=== PATIENT | female | born 1955 | race Caucasian/White ===

== ENCOUNTER 2021-11-10 06:41 | Observation (INO) ==
--- NOTE | 2021-10-09 11:14 | PAT Medication Instructions ---
Medication Instructions Date of Service October 09, 2021 Home Medications atorvastatin 20 mg tablet 20 mg PO HS ropinirole 3 mg tablet 3 mg PO HS ropinirole 3 mg tablet 3 mg PO UD PRN venlafaxine 150 mg capsule,extended release 24 hr (Effexor XR) 150 mg PO QAM venlafaxine 75 mg capsule,extended release 24 hr (Effexor XR) 75 mg PO QAM ibuprofen 600 mg tablet 600 mg PO UD PRN omega-3 fatty acids 1,000 mg PO QAM ASK your surgeon for instructions ibuprofen 600 mg tablet 600 mg PO UD PRN STOP taking 2 weeks before surgery omega-3 fatty acids 1,000 mg PO QAM DO NOT take the morning of surgery ropinirole 3 mg tablet 3 mg PO UD PRN Take morning of surgery With a small sip of water, OTHERWISE NOTHING TO EAT OR DRINK AFTER MIDNIGHT: venlafaxine 150 mg capsule,extended release 24 hr (Effexor XR) 150 mg PO QAM venlafaxine 75 mg capsule,extended release 24 hr (Effexor XR) 75 mg PO QAM Take evening before surgery atorvastatin 20 mg tablet 20 mg PO HS ropinirole 3 mg tablet 3 mg PO HS Other Notes If you have any questions please call us at [phone] or [phone] or [phone] or [phone]
--- NOTE | 2021-10-10 12:07 | Anesthesiology Consultation ---
Date of Service October 10, 2021 Assessment & Plan (1) Encounter for pre-operative examination: - Discussed staged vs bilat TKA. Pt plans to proceed with bilat TKA. - COVID screening: Per assessment on 10/10/2021: Travel screen negative, no known COVID-19 positive contacts or current COVID-19 related symptoms in past 2 weeks. Patient vaccinated. Surgeon arranging preop COVID testing, scheduled 11/08/2021. Awaiting results. Chart Review Chart Review: Acceptable Risk for Surgery and Patient seen in Pre Admission Testing Teaching & Discussion Pre-Anesthesia Teaching/Discussion Notes: Instructed NPO after midnight before surgery, except medications with 15 cc of water. Medication instructions provided according to the PAT guidelines. History Surgery Operation Date: 11/10/21 07:15 Proposed Procedures p Bilateral Total Knee Arthroplasty - Khadar Watkins DO Height/Weight Height: 5 ft 2 in Weight: 80.8 kg Allergies Allergy/AdvReac Type Severity Reaction Status Date / Time atorvastatin AdvReac Unknown LEG CRAMPS Verified 10/09/21 08:52 Medications Home Medications Medication Instructions Recorded Confirmed Last Taken atorvastatin 20 mg tablet 20 mg PO HS 01/17/21 10/09/21 Unknown ropinirole 3 mg tablet 3 mg PO HS 01/17/21 10/09/21 Unknown ropinirole 3 mg tablet 3 mg PO UD PRN 01/17/21 10/09/21 Unknown venlafaxine 150 mg 150 mg PO QAM 01/17/21 10/09/21 Unknown capsule,extended release 24 hr (Effexor XR) venlafaxine 75 mg capsule,extended 75 mg PO QAM 01/17/21 10/09/21 Unknown release 24 hr (Effexor XR) ibuprofen 600 mg tablet 600 mg PO UD PRN 10/09/21 10/09/21 Unknown omega-3 fatty acids 1,000 mg PO QAM 10/09/21 10/09/21 Unknown Past Medical History Medical History (Updated 10/10/21 @ 15:15 by Lyubov Oswald PA-C) Depression Glaucoma "mild" History of basal cell cancer s/p surgery History of blood transfusion 1990s states had donated own blood prior to a surgery d/t concern with AIDS and then received transfusion back per pt History of DVT (deep vein thrombosis) s/p childbirth age 18 - no additional events Hyperlipidemia borderline Osteoarthritis Restless leg syndrome Patient denies h/o stroke, seizures, heart attack, heart failure, DM, or HTN. Exercise / Class Metabolic Activity II 4-5 Yardwork/Stairs/Walk up hill (denies CP or SOB with 1 FOS) Past Family History Family History Other No family history of adverse response to anesthesia Past Surgical History Surgical History H/O oral surgery expansion of top palate for realignment/reconstructive procedure History of bunionectomy right History of colonoscopy History of tubal ligation S/P surgery on nasal septum nasal septum button insertion S/P NIGEL (total abdominal hysterectomy) Past Anesthesia History No Hx of Anesthesia Complications and No Family Hx of Anesthesia Complications History of PONV No Hx of PONV and No Hx of Motion Sickness Social History Smoking Status: Never smoker Do You Dip or Chew Tobacco: No Hx Alcohol Use: Yes Alcohol type: wine alcohol intake frequency: holidays/special occasions only Hx Substance Use: No substance use type: does not use Review of Systems Snoring, denies witnessed apneas or sleep studies. Rare reflux. Patient denies chest pain, shortness of breath, dyspnea on exertion, fever, chills, cough, wheezing, or palpitations. Physical Exam Vital Signs Vitals BP 134/87 P 87 TEMP 98.3 SP02 96% on RA RESP 16 Physical Full cervical extension range of motion without pain TMD 3.5 finger breaths Mallampati Score 2 Dentition: intact, multiple crowns-none in front; denies chipped, loose or missing teeth, implants or bridges Lungs: normal respiratory effort. Clear throughout to auscultation, no adventitious breath sounds Cardiac: regular rate and rhythm, no murmurs noted Carotid arteries: negative bruit bilat Lab Results Anesthesia Preop Results Results Anesthesia Widget: WBC 4.63 K/uL (4.8-10.8) L 10/10/21 Hgb 11.8 g/dL (12.0-16.0) L 10/10/21 Hct 34.7 % (37-47) L 10/10/21 Plt 301 K/uL (130-400) 10/10/21 Na 134 mmol/L (136-145) L 10/10/21 K 3.9 mmol/L (3.5-5.1) 10/10/21 Cl 104 mmol/L (98-107) 10/10/21 CO2 25 mmol/L (21-32) 10/10/21 BUN 17 mg/dl (6-23) 10/10/21 Creat 0.85 mg/dl (0.6-1.2) 10/10/21 Glucose Level 162 mg/dl (70-99(Fasting)) H 10/10/21 PT 10.3 Seconds (9.0-12.0) 10/10/21 PTT 23.3 Seconds (21.0-31.0) 10/10/21 INR 1.0 (0.9-1.1) 10/10/21 HA1c 5.6 % (4.5-5.6) 10/10/21 Urine Color Yellow 10/10/21 Urine Appearance Clear (Clear) 10/10/21 Urine pH 5.0 (4.5-7.5) 10/10/21 Urine Specific Dorothy 1.006 (1.000-1.030) 10/10/21 Urine Protein Negative (Negative) 10/10/21 Urine Glucose (UA) Negative (Negative) 10/10/21 Urine Ketones Negative (Negative) 10/10/21 Urine Blood Negative (Negative) 10/10/21 Urine Nitrite Negative (Negative) 10/10/21 Urine Bilirubin Negative (Negative) 10/10/21 Urine Urobilinogen Negative (Negative) 10/10/21 Urine Leukocyte Esterase Negative (Negative) 10/10/21 Blood Type A Positive 10/10/21 Antibody Screen NEGATIVE 10/10/21 Testing Electrocardiogram Date: 10/10/21 NSR, rate 80 bpm Chest X-Ray Date: 01/25/21 No acute cardiopulmonary findings
--- NOTE | 2021-11-06 10:06 | History & Physical Report ---
Date of Service November 06, 2021 Assessment & Plan (1) Bilateral primary osteoarthritis of knee: Plan: Schedule a bilateral total knee arthroplasty for 11/10/2021. All potential risks, benefits, complications, alternatives, and rehab have been discussed with the patient and she wishes to proceed. Plan for Eliquis 2.5 mg twice daily x4 weeks for postoperative blood clot prophylaxis. History of Present Illness Chief Complaint: Bilateral knee pain Primary Care Provider: Omar Adamson MD This is a patient with a long history of bilateral knee pain. She had been treated conservatively for osteoarthritis of both knees. However, she has failed all conservative management. She is now being set up for bilateral total knee arthroplasty. Allergies Allergy/AdvReac Type Severity Reaction Status Date / Time atorvastatin AdvReac Unknown LEG CRAMPS Verified 10/09/21 08:52 Home Medications Medication Instructions Recorded Confirmed Type atorvastatin 20 mg tablet 20 mg PO HS 01/17/21 10/09/21 History ropinirole 3 mg tablet 3 mg PO HS 01/17/21 10/09/21 History ropinirole 3 mg tablet 3 mg PO UD PRN 01/17/21 10/09/21 History venlafaxine 150 mg 150 mg PO QAM 01/17/21 10/09/21 History capsule,extended release 24 hr (Effexor XR) venlafaxine 75 mg capsule,extended 75 mg PO QAM 01/17/21 10/09/21 History release 24 hr (Effexor XR) ibuprofen 600 mg tablet 600 mg PO UD PRN 10/09/21 10/09/21 History omega-3 fatty acids 1,000 mg PO QAM 10/09/21 10/09/21 History Past Med/Surg History Medical History Depression Glaucoma "mild" History of basal cell cancer s/p surgery History of blood transfusion 1990s states had donated own blood prior to a surgery d/t concern with AIDS and then received transfusion back per pt History of DVT (deep vein thrombosis) s/p childbirth age 18 - no additional events Hyperlipidemia borderline Osteoarthritis Restless leg syndrome Surgical History H/O oral surgery expansion of top palate for realignment/reconstructive procedure History of bunionectomy right History of colonoscopy History of tubal ligation S/P surgery on nasal septum nasal septum button insertion S/P NIGEL (total abdominal hysterectomy) Family History Other No family history of adverse response to anesthesia Social History Smoking Status: Never smoker Second Hand Exposure: Yes (hx); Hx Alcohol Use: Yes Alcohol type: wine Hx Substance Use: No Preferred Language: Kinyarwanda Communication Ability: Effective Litigation Secretary Required: No Beliefs That Will Affect Care: None Current Living Situation: Alone Feels Safe at Home: Yes Assistive Devices: Glasses Physical Exam Constitutional: well developed and well nourished; no acute distress ENMT: external ear and nose normal, oropharynx normal Neck: trachea midline Respiratory: normal respiratory effort, lungs clear to auscultation Cardiovascular: Rate/Rhythm: regular rate and regular rhythm Gastrointestinal (Abdomen): normal bowel sounds, soft, nontender, no hepatosplenomegaly Musculoskeletal: Knee: + knee ROM with crepitation (Bilateral knees), + joint line tenderness (Bilateral medial and lateral joint lines) and + Asuncion's sign positive (Bilateral); no skin erythema and no ecchymosis Skin: no rashes, warm and dry Trauma: no evidence of skin trauma Neurologic: normal touch/pain/proprioception Psychiatric: A+Ox3, euthymic affect Speech: normal rate/rhythm/volume of speech Lymphatic: no cervical or axillary lymphadenopathy
[~2021-11-10 06:41] MED LIST: ACETAMINOPHEN 500 MG TAB PO SCH; CeleBREX 200 MG CAP PO SCH; DEXAMETHASONE SOD INJ 4 MG/ML VIAL ONE; FAMOTIDINE 20 MG TAB PO SCH; GABAPENTIN 300 MG CAP PO SCH; LIDOCAINE 2% 2 ML VIAL/AMP(20MG/ML) INFIL ONE; LR 15ML/HR IV SCH; LR 500ML BOLUS IV SCH; METOCLOPRAMIDE HCL 10 MG TABLET PO SCH; MIDAZOLAM HCL 1 MG/ML 2ML VIAL ONE; ONDANSETRON INJ 2 MG/ML 2 ML VIAL ONE; PROPOFOL IV EMULSION 10 MG/ML 20 ML VIAL IV ONE; ROPIVACAINE 0.5% HCL/PF 150 MG, BUPIVACAINE 0.75% MPF 20 ML, EPINEPHrine 30MG/30ML (OR ... INFIL SCH; TRANEXAMIC ACID 1,000 MG **IV Intra-op IV SCH; TRANEXAMIC ACID 1,000 MG **IV Pre-op IV SCH; ceFAZolin 2000MG 2,000 MG/15 ML SYR IV SCH; dexAMETHasone 4 MG TAB PO SCH
[2021-11-10] MEDS ORDERED: LIDOCAINE 2% 2 ML VIAL/AMP(20MG/ML) INFIL ONE (06:42)
[2021-11-10] MEDS ORDERED: fentaNYL citrate 100 MCG/2 ML VIAL ONE (06:42)
[2021-11-10] MEDS ORDERED: PROPOFOL IV EMULSION 10 MG/ML 20 ML VIAL IV ONE (06:42)
[2021-11-10] MEDS ORDERED: ROPIVACAINE 0.5% 5 MG/ML 30 ML VIAL ONE (07:30)
--- NOTE | 2021-11-10 07:32 | History & Physical Bridge Note ---
Date of Service November 10, 2021 History & Physical Bridge Note I have examined the patient, reviewed the History & Physical and in the interval since the performance of the History & Physical I have noted the following changes of clinical significance: no changes noted
[2021-11-10] MEDS ORDERED: HYDROmorphone INJ 2 MG/ML SYR/VIAL ONE (07:33)
[2021-11-10] MEDS ORDERED: ceFAZolin 330 MG/ML 1 GM VIAL ONE (08:12)
[2021-11-10] MEDS ORDERED: ORTHO JOINT ANESTHETIC ONE (08:12)
[2021-11-10] MEDS ORDERED: ePHEDrine sulfate 50 MG/ML AMP IV PRN (08:21)
[2021-11-10] MEDS ORDERED: fentaNYL citrate 100 MCG/2 ML VIAL IV PRN (08:21)
[2021-11-10] MEDS ORDERED: ATROPINE SULFATE 0.1 MG/ML 10ML SYR IV PRN (08:21)
[2021-11-10] MEDS ORDERED: ONDANSETRON INJ 2 MG/ML 2 ML VIAL IV PRN ×2 (08:21→15:51)
[2021-11-10] MEDS ORDERED: ARTIFICIAL TEARS OP OINT 3.5 GM TUBE ONE (09:12)
[2021-11-10] MEDS ORDERED: KETAMINE 50 MG/5 ML SYRINGE ONE (09:53)
[2021-11-10] MEDS ORDERED: GLYCOPYRROLATE 0.2 MG/ML VIAL ONE (09:54)
[2021-11-10] MEDS ORDERED: METOPROLOL TARTRATE 1 MG/ML VIAL IV ONE (10:40)
[2021-11-10] MEDS ORDERED: BUPIVACAINE 0.5 % 5 MG/1 ML MPF 30ML VIAL ONE (12:08)
--- NOTE | 2021-11-10 12:27 | Post Operative Brief Note ---
Immediate Post Op Note v1 Date of Surgery November 10, 2021 Pre & Post Diagnosis Operation Date: 11/10/21 08:45 Pre-Op Diagnosis: Bilateral Knee Osteoarthritis, varus left knee, varus right knee Post-Op Diagnosis: Bilateral Knee Osteoarthritis, varus left knee, varus right knee, bilateral knee synovitis I identified the patient and participated in the time-out.: Yes Procedure Operation Date: 11/10/21 08:45 Actual Procedures p Bilateral Total Knee Arthroplasties; [facility] MRI matched cemented; left side 5 femur, 4 tibia, 9 mm poly-, 32 mm patella; right side 6 femur, 4 tibia, 10 mm poly-, 32 mm patellaKhadar Watkins DO Surgeon Khadar Watkins DO Person Investigator Leobardo Reddy PA-C Estimated Blood Loss 30 (Right - 15ml Left - 15ml) Findings Consistent with Post-Op Diagnosis Specimens Bone and tissue bilateral knees Drains Hemovac Drain (bilateral) Anesthesia Type MAC Spinal Regional Complications none Disposition Accompanied Patient To Recovery: No Overlapping Procedure I was present for: the critical portions of procedure. I was immediately available: during the entire case.
--- NOTE | 2021-11-10 13:31 | XRay Report ---
XR knee LT 1 or 2V routine CLINICAL HISTORY: Surgical Post Op. Status post total knee replacement COMPARISON STUDY: No previous studies for comparison. TECHNIQUE: 2 left knee views FINDINGS: The patient is status post total knee replacement. The prosthetic components are in anatomi c alignment with no acute abnormality seen. Air is present within the soft tissues from the procedure . Skin angel are seen anteriorly. IMPRESSION: 1. Status post left total knee replacement and resurfacing of the patella ACT 112: Negative or not required by law. Electronically signed by: Felice Casillas M.D. 11/10/2021 1:30 PM
--- NOTE | 2021-11-10 13:32 | XRay Report ---
XR knee RT 1 or 2V routine CLINICAL HISTORY: Surgical Post Op. Status post total knee replacement COMPARISON STUDY: No previous studies for comparison. TECHNIQUE: 2 right knee views FINDINGS: The patient is status post total knee replacement. The prosthetic components are in anatomi c alignment with no acute abnormality seen. Air is present within the soft tissues from the procedure . Skin angel are seen anteriorly. IMPRESSION: 1. Status post right total knee replacement with resurfacing of the patella. ACT 112: Negative or not required by law. Electronically signed by: Felice Casillas M.D. 11/10/2021 1:31 PM
--- NOTE | 2021-11-10 15:36 | Anesthesiology Progress Note ---
Date of Service November 10, 2021 Anesthesia Post Procedure Vital Signs Vital Signs: Temp Pulse Pulse Resp BP Pulse Ox 11/10/21 15:10 92 H 14 106/75 92 11/10/21 15:00 93 H 12 119/81 94 11/10/21 14:50 93 H 18 126/83 94 11/10/21 14:40 92 H 13 113/71 96 11/10/21 14:30 94 H 17 109/78 93 11/10/21 14:20 91 H 16 111/79 93 11/10/21 14:10 88 19 112/80 95 11/10/21 14:00 92 H 12 130/88 93 11/10/21 13:50 91 H 20 133/88 95 11/10/21 13:40 36.6 C 103 H 16 137/85 96 11/10/21 13:30 36.4 C L 108 H 16 126/89 95 11/10/21 13:20 36.2 C L 92 H 16 120/83 93 11/10/21 13:10 36 C L 95 H 14 137/89 92 11/10/21 08:05 36.7 C 89 16 134/98 97 Transfer of Care Handoff Completed per policy Notes Mental Status: alert / awake / arousable Patient Amnestic to Procedure: Yes Nausea / Vomiting: adequately controlled Pain: adequately controlled Airway Patency, RR, SpO2: stable & adequate BP & HR: stable & adequate Hydration State: stable & adequate Anesthetic Complications: no major complications apparent
[2021-11-10] MEDS ORDERED: MAGNESIUM HYDROXIDE SUSP 30 ML UDC PO PRN (15:51)
[2021-11-10] MEDS ORDERED: bisacodyL 10 MG SUPP PR PRN (15:51)
[2021-11-10] MEDS ORDERED: NALOXONE HCL 0.4 MG/1 ML VIAL/CARP IV PRN (15:51)
[2021-11-10] MEDS ORDERED: HYDROmorphone INJ 0.5 MG/0.5 ML SYR IV PRN (15:51)
[2021-11-10] MEDS ORDERED: oxyCODONE HCL IR 5 MG TAB (IMMEDIATE RELEASE) ONE (16:04)
[2021-11-10] MEDS ORDERED: ACETAMINOPHEN 500 MG TAB ONE (16:08)
[2021-11-10] MEDS: ACETAMINOPHEN 500 MG TAB PO SCH ×3 (16:15→21:07)
[2021-11-10] MEDS: oxyCODONE HCL IR 5 MG TAB (IMMEDIATE RELEASE) PO PRN (16:15)
[2021-11-10] MEDS: SODIUM CHLORIDE 0.9% 1000ML 1,000 ML IV SCH (18:14)
--- NOTE | 2021-11-10 19:24 | Operative Report (OR) ---
DATE OF PROCEDURE: 11/10/2021. PREOPERATIVE DIAGNOSES: 1. Bilateral knee osteoarthritis. 2. Varus deformity, right knee. 3. Varus deformity of the left knee. 4. Severe synovitis, bilateral knees. POSTOPERATIVE DIAGNOSES: 1. Bilateral knee osteoarthritis. 2. Varus deformity, right knee. 3. Varus deformity of the left knee. 4. Severe synovitis, bilateral knees. PROCEDURE: Bilateral total knee arthroplasty, Candelaria and Nephew MRI matched cemented total knee; left side 5 femur, 4 tibia, 9 mm posterior stabilized polyethylene, 32 mm round patella; right side 6 femur, 4 tibia, 10 mm posterior stabilized polyethylene, 32 mm round patella. SURGEON: Khadar Watkins DO. HOT WORT SETTLER: Leobardo Reddy PA-C who was present for patient positioning, sterile prep and drape, management of retractors and instruments. He was present through the critical portions of the case including wound closure, application of sterile dressing and transport of the patient to recovery. ANESTHESIA: MAC spinal regional with intra-articular local. SPECIMENS: Bone and tissue of bilateral knees. DRAINS: Hemovac drains bilateral knees. COMPLICATIONS: None. BLOOD LOSS: 15 mL right, 15 mL left. PERTINENT HISTORY: This is a 66-year-old female who has had chronic progressive and worsening bilateral knee osteoarthritis pain, deformity and varus malalignment over the last 3-4 years. She attempted and failed conservative management including rest, observation, anti-inflammatories, topical preparations, intra-articular steroid injections, physician-directed home exercises, physical therapy and use of an assistive device. The patient had radiographs, which demonstrated right and left knee osteoarthritis with loss of joint space, marginal osteophytes, subchondral sclerosis, and subchondral cysts. On the medial aspect of the knee with Genu varum deformity of the right knee and left knee. The patient was scheduled for surgery as indicated. All potential risks, benefits, complications, alternatives, rehab potential for incomplete relief of symptoms, need for further surgery, DVT, PE, , persistent pain, swelling, scarring, weakness, neurovascular injury, wound complications, hardware failure, nonunion, malunion, bone fracture were discussed with the patient. The patient decided to proceed with the procedure as indicated. DESCRIPTION OF PROCEDURE: The patient was taken to the Operating Suite and placed supine on the Operating Room table after the patient had been administered spinal anesthetic and adductor canal block in the preop holding area. The patient was sedated. Proper operative site was identified. The tourniquet was placed high on the right and left lower extremities. Right and left lower extremities were then sterilely prepped and draped in the usual fashion. First the right lower extremity was elevated and exsanguinated with an Esmarch bandage. Tourniquet inflated to 325 mmHg. Next a midline 10-blade scalpel incision was made directly over the middle one-third of the patella extending to the level of the tibial tubercle. The incision was deepened through the subcutaneous tissue and meticulous hemostasis with electrocautery. Full- thickness skin flaps were developed taking care to avoid superficial cutaneous nerves and neurovascular bundles. Next, median parapatellar capsular incision was made 10-blade scalpel after the superior medial corner had been marked with a marking pen for later reapproximation. Next, patella was everted. Soft tissue releases were performed of the knee including along the anterior medial corner to the level of the MCL which was protected and released adjacent to the intact MCL with Morales elevator. Fat pad was resected anteriorly and small half sethi portion of tissue was resected at the superior margin of the femoral articular surface. Fulminant synovitis was noted throughout the knee joint. A complete synovectomy was performed with sharp dissection with a 10 blade scalpel and electrocautery. Next, the patella thickness was measured with caliper and held in everted position with Gopal. Next, sagittal saw was used to make orthogonal cuts to the level of the patellar nose. Caliper was used to remeasure the patella and the appropriate sized patellar button, in this case size 32 mm round patella was felt to be most appropriate. The alignment guide was then put in place. Peg holes were drilled and alignment guide was then removed. Next, the femoral cutting block was placed in the distal aspect of the femur and pinned in place. Next the distal femoral cut was made based off the patients anatomy and MRI patient matched cutting block. Next, a size 6 distal 4-in-1 cutting block was tamped in place then stabilized with pins. Next, the appropriate soft tissue retraction was made and anterior chamfer and posterior chamfer cuts were made with the sagittal saw. Next, the 4-in-1 cutting block was then removed followed by removal of all bone fragments. Next, attention was then directed toward the proximal tibia. Blunt Valerie was placed posterior to the tibia to protract it anteriorly and median and lateral sharp Valerie retractors were placed. Soft tissue and portion of the menisci were then resected at this time and MRI matched proximal tibial cutting block was then pinned in place and proximal tibial cut was made with sagittal saw. Alignment guide was removed. Pins were removed and the proximal fragment of the tibia was then sharply excised and removed. Next, proximal tibial tray trial size 4 was then pinned in place and this was felt to be well matched for the patients anatomy, pinned in place and keel punch was then utilized with mallet. Keel punch was then removed and cervical laminar child care center assistant director was then placed in the medial compartment. The lateral compartment was then inspected for osteophytes and soft tissue impingement. There was found to be none. I then switched to the lateral compartment and medial compartment was then dbrided of any soft tissue impingement. Next the laminar child care center assistant director was removed and the femoral trial, in this case size 6 was then malleted in place, pinned and then femoral notch milling guide was then placed anteriorly. This was then reamed and then punched with sharp punch and mallet. Next, the distal aspect of the femur was then inserted in notch guide and size 6 mm poly was inserted, reduced. Patellar button was then placed in trial and range of motion was performed. Next after range of motion and stability test was performed the implants were found to be appropriate size. Trials were all removed. The posterior capsule was injected with Orthomix. Next the joint was then cleansed with pulsatile lavage using approximately 3 liters normal saline with Ancef additive. Next all bony surfaces were the suctioned and drained and standard cementing technique was performed with Candelaria and Nephew MRI matched cemented total knee and all excess cement was then removed from around the implant site. 10 mm posterior stabilized polyethylene bearing was implanted and checked for stability. The patellar button was then cemented in place and held in place with patellar clamp. Next, double lumen 10 Jordanian Hemovac drain was then placed and exiting anterolaterally and the capsule was closed using interrupted #1 Vicryl sutures. The dermis was closed using buried interrupted 2- 0 Vicryl and the skin closed with skin angel. A sterile compressive dressing was applied from the toes to the groin and overwrapped with Justin wrap. Tourniquet was released. Next attention was then focused on the left knee. Left lower extremity was elevated and exsanguinated with an Esmarch bandage. Tourniquet inflated to 325 mmHg. Next a midline 10-blade scalpel incision was made directly over the middle one-third of the patella extending to the level of the tibial tubercle. The incision was deepened through the subcutaneous tissue and meticulous hemostasis with electrocautery. Full-thickness skin flaps were developed taking care to avoid superficial cutaneous nerves and neurovascular bundles. Next, median parapatellar capsular incision was made 10-blade scalpel after the superior medial corner had been marked with a marking pen for later reapproximation. Next, patella was everted. Soft tissue releases were performed of the knee including along the anterior medial corner to the level of the MCL which was protected and released adjacent to the MCL with Morales elevator. Fat pad was resected anteriorly and small half sethi portion of tissue was resected at the superior margin of the dermal articular surface. Next, the patella thickness was measured with caliper and held in everted position with Gopal. Next, sagittal saw was used to make orthogonal cuts to the level of the patellar nose. Caliper was used to remeasure the patella and the appropriate sized patellar button, in this case size 32 mm round patella was felt to be most appropriate. The alignment guide was then put in place. Peg holes were drilled and alignment guide was then removed. Next, the femoral cutting block was placed in the distal aspect of the femur and pinned in place. Next the distal femoral cut was made based off the patients anatomy and MRI patient matched cutting block. Next, a size 5 distal 4-in-1 cutting block was tamped in place then stabilized with pins. Next, the appropriate soft tissue retraction was made and anterior chamfer and posterior chamfer cuts were made with the sagittal saw. Next, the 4-in-1 cutting block was then removed followed by removal of all bone fragments. Next, attention was then directed toward the proximal tibia. Blunt Valerie was placed posterior to the tibia to protract it anteriorly and median and lateral sharp Valerie retractors were placed. Soft tissue and portion of the menisci were then resected at this time and MRI matched proximal tibial cutting block was then pinned in place and proximal tibial cut was made with sagittal saw. Alignment guide was removed. Pins were removed and the proximal fragment of the tibia was then sharply excised and removed. Next, proximal tibial tray trial size 4 was then pinned in place and this was felt to be well matched for the patients anatomy, pinned in place and keel punch was then utilized with mallet. Keel punch was then removed and cervical laminar child care center assistant director was then placed in the medial compartment. The lateral compartment was then inspected for osteophytes and soft tissue impingement. There was found to be none. I then switched to the lateral compartment and medial compartment was then dbrided of any soft tissue impingement. Next the laminar child care center assistant director was removed and the femoral trial, in this case size 5 was then malleted in place, pinned and then femoral notch milling guide was then placed anteriorly. This was then reamed and then punched with sharp punch and mallet. Next, the distal aspect of the femur was then inserted in notch guide and size 9 mm posterior stabilized polyethylene was inserted and the knee was reduced. Patellar button was then placed in trial and range of motion was performed. Next after range of motion and stability test was performed the implants were found to be appropriate size. Trials were all removed. The posterior capsule was injected with Orthomix. Next the joint was then cleansed with pulsatile lavage using approximately 3 liters normal saline with Bacitracin additive. Next all bony surfaces were the suctioned and drained and standard cementing technique was performed with Candelaria and Nephew MRI matched cemented total knee and all excess cement was then removed from around the implant site. 9 mm posterior stabilized polyethylene bearing was implanted and checked for stability. The patellar button was then cemented in place and held in place with patellar clamp. Next, double lumen 10 Jordanian Hemovac drain was then placed and exiting anterolaterally and the capsule was closed using interrupted #1 Vicryl sutures. The dermis was closed using buried interrupted 2- 0 Vicryl and the skin closed with skin angel. A sterile compressive dressing was applied from the toes to the groin and overwrapped with Justin wrap. Tourniquet was released. The patient was awakened and taken to recovery in stable condition. Job ID: [id number] [facility]ITALTerrie
--- NOTE | 2021-11-10 20:39 | Consultation Report ---
DATE OF CONSULTATION: 11/10/2021. CHIEF COMPLAINT: Status bilateral knee replacements. HISTORY OF PRESENT ILLNESS: A 66-year-old female with past medical history significant for hyperlipidemia, nasal septal perforation, rectocele, restless legs syndrome, primary open angle glaucoma both eyes, depression, history of epistaxis, status post bilateral knee replacement, tolerated the procedure okay. She is ambulatory with a walker in the room. Denies any headache, no dizziness. She had some blurred vision earlier, but it resolved. No nausea, no chest pain, no shortness of breath, no cough. Micturating fine. Standing, she seems comfortable. ALLERGIES: ATORVASTATIN. PAST MEDICAL HISTORY: As mentioned above. PAST SURGICAL HISTORY: Carpal tunnel surgery, colonoscopy, insertion of nasal septal button, LASIK surgery, ligation of oviduct, appendectomy, tonsillectomy, partial hysterectomy. MEDICATIONS: The patient is on cyclosporine one drop ophthalmic q. 12 hours, ibuprofen p.r.n., ropinirole 3 mg p.o. at bedtime, Effexor XR 225 mg p.o. a.m. FAMILY HISTORY: Significant for son has alcoholism. Mother has glaucoma, pleurisy, maternal grandmother had heart disorder, hypertension. SOCIAL HISTORY: Single. No smoking, alcohol rare, no drug use. REVIEW OF SYSTEMS: As per HPI. Rest of the review of systems is negative. PHYSICAL EXAMINATION: GENERAL: The patient is obese, not in acute distress. VITAL SIGNS: Temperature 36.9, pulse 93, respiratory rate 18, blood pressure 107/69, oxygen 93% on room air. HEENT: Atraumatic. Extraocular muscles intact. NECK: No neck masses seen. CARDIOVASCULAR: S1 and S2 heard. Regular rate and rhythm. No murmur, no gallop. RESPIRATORY SYSTEM: Normal AP diameter. No accessory muscle use. No wheezing, no crackles. ABDOMEN: Soft, no distention, no guarding. CENTRAL NERVOUS SYSTEM: Alert and oriented. Speech is clear. No facial droop. Obeys simple commands. Insight is good. Moves extremities. EXTREMITIES: Status post bilateral knee replacement. Drains seen. LABORATORY RESULTS: Not available. ASSESSMENT AND PLAN: This is a 66-year-old female status post bilateral knee replacement. 1. Bilateral knee replacement: Management as per orthopedics. 2. Depression: Continue home Effexor XR. 3. History of restless legs syndrome: On ropinirole. 4. History of glaucoma: Continue home eyedrops. 5. Dry eyes: Continue home drops. 6. Deep venous thrombosis prophylaxis and disposition: As per orthopedics. Job ID: [id number] [facility]
[2021-11-10] MEDS: ceFAZolin 2000MG 2,000 MG/15 ML SYR IV SCH (21:04)
[2021-11-10] MEDS: FERROUS GLUCONATE 324 MG TAB PO SCH (21:04)
[2021-11-10] MEDS: DOCUSATE SODIUM 100 MG CAP PO SCH (21:05)
[2021-11-10] MEDS: SENNA 8.6 MG TAB PO SCH (21:05)
[2021-11-10] MEDS: rOPINIRole HCL 1 MG TABLET PO SCH (21:05)
[2021-11-10] MEDS: *RESTASIS*ORDER AWAITING ACTION SCH (21:52)
[2021-11-11] MEDS: SODIUM CHLORIDE 0.9% 1000ML 1,000 ML IV SCH (03:32)
[2021-11-11] MEDS: ceFAZolin 2000MG 2,000 MG/15 ML SYR IV SCH (03:32)
[2021-11-11] MEDS: oxyCODONE HCL IR 5 MG TAB (IMMEDIATE RELEASE) PO PRN ×5 (03:48→22:37)
[2021-11-11] MEDS: ACETAMINOPHEN 500 MG TAB PO SCH ×3 (05:27→21:00)
[2021-11-11 07:49] LABS: Hematocrit (blood only) 24.6 % (37-47); Hemoglobin 8.3 g/dL (12.0-16.0); Mean Corpuscular Hemoglobin 33.3 pg (25-34); Mean Corpuscular Hgb Conc 33.7 g/dL (32-36); Mean Corpuscular Volume 98.8 fL (80-100); Mean Platelet Volume 8.9 fL (7.4-10.4); Platelet Count 231 K/uL (130-400); RDW Coefficient of Variation 12.2 % (11.5-14.5); RDW Standard Deviation 43.9 fL (36.4-46.3); Red Blood Count 2.49 M/uL (4.2-5.4)
[2021-11-11] MEDS: *RESTASIS*ORDER AWAITING ACTION SCH ×2 (07:59→16:19)
[2021-11-11 08:10] LABS: BUN Creatinine Ratio 20.5 (10-20); Calcium 7.9 mg/dl (8.5-10.1); Creatinine Clr Calc Pharmacy 64.6 ml/min; Est GFR (African American) 84.6 ml/min; Potassium 4.2 mmol/L (3.5-5.1)
[2021-11-11] MEDS: MULTIVITAMIN TAB PO SCH (08:10)
[2021-11-11] MEDS: APIXABAN 2.5 MG TAB PO SCH ×2 (08:10→20:53)
[2021-11-11] MEDS: VENLAFAXINE HCL XR 150 MG CAPXR PO SCH (08:10)
[2021-11-11] MEDS: FERROUS GLUCONATE 324 MG TAB PO SCH ×2 (08:10→17:15)
[2021-11-11] MEDS: VENLAFAXINE HCL XR 75 MG CAPXR PO SCH (08:10)
[2021-11-11] MEDS: DOCUSATE SODIUM 100 MG CAP PO SCH ×2 (08:11→20:53)
--- NOTE | 2021-11-11 09:00 | Orthopedic Progress Note ---
Date of Service November 11, 2021 Assessment & Plan (1) Bilateral primary osteoarthritis of knee: Plan: Postop day 1 status post bilateral total knee arthroplasty. Acute blood loss anemia-hemoglobin down to 8.3 from 11. Consistent with surgery. Watch for now. Morning blood pressure on the low side but patient remaining asymptomatic. PT/OT protocols. Weightbearing as tolerated. Patient states [place] evening with nursing and did well. DVT prophylaxis-apixaban p.o. twice daily, SCDs, ASHOK montalvo. Pain management as written. DC planning-patient is planning for discharge to home with home health services. Admission and Anticipated Discharge Date Admission Date: November 10, 2021 Subjective POD 1 Pt sitting up in chair at bedside. Having pain in the knees but medications helping and tolerating well. Denies shortness of breath, chest pain, lightheadedness. Discussed discharge plans of which she is planning for home health services. He has a friend that has come up to help her for the next 2 weeks. Physical Exam Physical Exam: Dressings are clean, dry, and intact bilaterally. Calves are soft nontender. Neurovascular is intact. Toes are mobile. She has good dorsiflexion and plantarflexion of both feet. Hemovac drainage was 200/ 150 mL of the left and right knee Results & Data ([facility]) Vital Signs (Past 12 Hours) Vital Signs Temp Pulse Resp BP BP Pulse Ox 11/11/21 07:29 36.7 C 87 17 99/65 L 94 11/11/21 05:11 36.6 C 82 16 101/65 91 11/11/21 01:05 36.7 C 88 16 98/64 L 92 Laboratory Results Laboratory Results WBC 10.30 K/uL (4.8-10.8) 11/11/21 06:49 RBC 2.49 M/uL (4.2-5.4) L 11/11/21 06:49 Hgb 8.3 g/dL (12.0-16.0) L 11/11/21 06:49 Hct 24.6 % (37-47) L 11/11/21 06:49 MCV 98.8 fL (80-100) 11/11/21 06:49 MCH 33.3 pg (25-34) 11/11/21 06:49 MCHC 33.7 g/dL (32-36) 11/11/21 06:49 RDW Std Deviation 43.9 fL (36.4-46.3) 11/11/21 06:49 RDW Coeff of Vanesa 12.2 % (11.5-14.5) 11/11/21 06:49 Plt Count 231 K/uL (130-400) 11/11/21 06:49 MPV 8.9 fL (7.4-10.4) 11/11/21 06:49 Sodium 135 mmol/L (136-145) L 11/11/21 06:49 Potassium 4.2 mmol/L (3.5-5.1) 11/11/21 06:49 Chloride 105 mmol/L (98-107) 11/11/21 06:49 Carbon Dioxide 28 mmol/L (21-32) 11/11/21 06:49 Anion Gap 2 (3-11) L 11/11/21 06:49 BUN 17 mg/dl (6-23) 11/11/21 06:49 Creatinine 0.83 mg/dl (0.6-1.2) 11/11/21 06:49 Est Cr Clr Drug Dosing 64.6 ml/min 11/11/21 06:49 Est GFR ( Amer) 84.6 ml/min 11/11/21 06:49 Est GFR (Non-Af Amer) 73.0 ml/min 11/11/21 06:49 BUN/Creatinine Ratio 20.5 (10-20) H 11/11/21 06:49 Glucose 110 mg/dl (70-99(Fasting)) H 11/11/21 06:49 Calcium 7.9 mg/dl (8.5-10.1) L 11/11/21 06:49 SARS-CoV-2, RNA, NAAT NEGATIVE (NEGATIVE) 11/10/21 07:45 Impressions Knee X-Ray 11/10/21 09:57 XR knee RT 1 or 2V routine CLINICAL HISTORY: Surgical Post Op. Status post total knee replacement COMPARISON STUDY: No previous studies for comparison. TECHNIQUE: 2 right knee views FINDINGS: The patient is status post total knee replacement. The prosthetic components are in anatomic alignment with no acute abnormality seen. Air is present within the soft tissues from the procedure. Skin angel are seen anteriorly. IMPRESSION: 1. Status post right total knee replacement with resurfacing of the patella. ACT 112: Negative or not required by law. XR knee LT 1 or 2V routine CLINICAL HISTORY: Surgical Post Op. Status post total knee replacement COMPARISON STUDY: No previous studies for comparison. TECHNIQUE: 2 left knee views FINDINGS: The patient is status post total knee replacement. The prosthetic components are in anatomic alignment with no acute abnormality seen. Air is present within the soft tissues from the procedure. Skin angel are seen anteriorly. IMPRESSION: 1. Status post left total knee replacement and resurfacing of the patella Electronically signed by: Felice Casillas M.D. 11/10/2021 1:31 PM
[2021-11-11] MEDS ORDERED: KETOROLAC TROMETHAMINE 15 MG/ML VIAL IV PRN (09:07)
[2021-11-11] MEDS ORDERED: SODIUM CHLORIDE 0.9% 1000ML 1,000 ML IV ONE (10:04)
--- NOTE | 2021-11-11 18:09 | Hospitalist Progress Note ---
Date of Service November 11, 2021 Assessment & Plan (1) Bilateral primary osteoarthritis of knee: Plan: Patient is a 66 yr female was consulted for post op medical management after having bilateral knee replacement. Bilateral primary osteoarthritis of knee S/P bilateral total knee arthroplasty on 11/10/[address] Watkins Postoperative acute blood loss anemia Pain control, DVT prophylaxis, activity as per primary team PT OT when appropriate Continue incentive spirometer Bowel regimen to prevent constipation Monitor CBC No indication for transfusion currently Hb 8.3 today Post operative Hypotension Gentle IV fluids Currently not on any antihypertensives Monitor BP Depression: Continue Effexor XR. RLS On ropinirole Glaucoma: Dry Eyes Continue home eyedrops DVT Px: As per Primary Team Admission and Anticipated Discharge Date Admission Date: November 10, 2021 Subjective Patient is seen and examined at bedside Bilateral knee pain is controlled Relatively low blood pressure this morning Denies any chest pain, shortness of breath, dizziness, nausea, abdominal pain Offers no other complaints +Flatus Review of Systems Review of Systems: All systems reviewed & are unremarkable except as noted in Subjective Physical Exam Physical Exam: Physical Exam: Vitals signs as noted above General Appearance:Moderately built and nourished, no apparent distress Head: normocephalic, Atraumatic Eyes: normal inspection, EOMI Neck: supple, Trachea midline Respiratory/Chest: Normal breath sounds, CTA, No accessory muscle use Cardiovascular: S1, S2, No murmur Abdomen/GI:Soft, Non tender, Bowel sounds present Extremities/Musculoskeletal:normal inspection, no edema, B/L Knee in dressing Neurologic/Psych:AAOX3, grossly no focal neurological deficits Skin: normal color, warm Results & Data Results & Data ([facility]) Vital Signs (Past 12 Hours) Vital Signs Temp Pulse Resp BP Pulse Ox 11/11/21 15:30 36.9 C 99 H 16 111/75 94 11/11/21 11:53 37.0 C 98 H 14 114/73 91 11/11/21 07:29 36.7 C 87 17 99/65 L 94 Laboratory Results Short CBC 11/11/21 Range/Units 06:49 WBC 10.30 (4.8-10.8) K/uL Hgb 8.3 L (12.0-16.0) g/dL Hct 24.6 L (37-47) % Plt Count 231 (130-400) K/uL BMP 11/11/21 06:49 Sodium 135 L Potassium 4.2 Chloride 105 Carbon Dioxide 28 BUN 17 Creatinine 0.83 Glucose 110 H Calcium 7.9 L
[2021-11-11] MEDS: rOPINIRole HCL 1 MG TABLET PO SCH (20:52)
[2021-11-11] MEDS: SENNA 8.6 MG TAB PO SCH (20:54)
[2021-11-12] MEDS: *RESTASIS*ORDER AWAITING ACTION SCH ×2 (00:05→08:30)
[2021-11-12] MEDS: oxyCODONE HCL IR 5 MG TAB (IMMEDIATE RELEASE) PO PRN ×2 (05:18→09:19)
[2021-11-12] MEDS: ACETAMINOPHEN 500 MG TAB PO SCH (05:19)
[2021-11-12 07:26] LABS: Hematocrit (blood only) 23.7 % (37-47); Hemoglobin 8.2 g/dL (12.0-16.0); Mean Corpuscular Hemoglobin 33.7 pg (25-34); Mean Corpuscular Hgb Conc 34.6 g/dL (32-36); Mean Corpuscular Volume 97.5 fL (80-100); Platelet Count 224 K/uL (130-400); RDW Coefficient of Variation 12.3 % (11.5-14.5); Red Blood Count 2.43 M/uL (4.2-5.4); White Blood Count 6.57 K/uL (4.8-10.8)
[2021-11-12 07:40] LABS: BUN Creatinine Ratio 21.3 (10-20); Calcium 7.9 mg/dl (8.5-10.1); Est GFR (African American) 108.7 ml/min; Est GFR (Non-African American) 93.8 ml/min; Potassium 3.8 mmol/L (3.5-5.1)
[2021-11-12] MEDS: MULTIVITAMIN TAB PO SCH (09:18)
[2021-11-12] MEDS: VENLAFAXINE HCL XR 150 MG CAPXR PO SCH (09:18)
[2021-11-12] MEDS: DOCUSATE SODIUM 100 MG CAP PO SCH (09:18)
[2021-11-12] MEDS: VENLAFAXINE HCL XR 75 MG CAPXR PO SCH (09:18)
[2021-11-12] MEDS: FERROUS GLUCONATE 324 MG TAB PO SCH (09:18)
[2021-11-12] MEDS: APIXABAN 2.5 MG TAB PO SCH (09:18)
--- NOTE | 2021-11-12 11:39 | Orthopedic Progress Note ---
Date of Service November 12, 2021 Assessment & Plan (1) Bilateral primary osteoarthritis of knee: Plan: Postop day 2 status post bilateral total knee arthroplasty. Acute blood loss anemia-hemoglobin stable at 8.2. Consistent with surgery. Mild tachycardia with this AM's vital signs. Otherwise asymptomatic PT/OT protocols. Weightbearing as tolerated. DVT prophylaxis-apixaban p.o. twice daily, SCDs, ASHOK montalvo. Pain management as written. DC planning-patient is planning for discharge to home with home health services. Plan for dc to home today. Admission and Anticipated Discharge Date Admission Date: November 10, 2021 Subjective POD 2 Pt in [place] doing her daily toiletries on her own. States she is doing well. Having some pain currently but tolerating. Denies SOB,CP, LH. Pt would like to go home. Nursing states patient ambulating around the corridor with PT today. Physical Exam Physical Exam: MARIS Dressings intact. Calves soft, NT. NV intact. Toes mobile. Results & Data ([facility]) Vital Signs (Past 12 Hours) Vital Signs Temp Pulse Resp BP Pulse Ox 11/12/21 07:38 36.7 C 102 H 18 120/76 96 Laboratory Results 11/12/21 11/12/21 Range/Units 06:31 06:31 WBC 6.57 (4.8-10.8) K/uL RBC 2.43 L (4.2-5.4) M/uL Hgb 8.2 L (12.0-16.0) g/dL Hct 23.7 L (37-47) % MCV 97.5 (80-100) fL MCH 33.7 (25-34) pg MCHC 34.6 (32-36) g/dL RDW Std Deviation 44.0 (36.4-46.3) fL RDW Coeff of Vanesa 12.3 (11.5-14.5) % Plt Count 224 (130-400) K/uL MPV 9.0 (7.4-10.4) fL Sodium 132 L (136-145) mmol/L Potassium 3.8 (3.5-5.1) mmol/L Chloride 103 (98-107) mmol/L Carbon Dioxide 26 (21-32) mmol/L Anion Gap 3 (3-11) BUN 13 (6-23) mg/dl Creatinine 0.61 (0.6-1.2) mg/dl Est Cr Clr Drug Dosing 88.0 ml/min Est GFR ( Amer) 108.7 ml/min Est GFR (Non-Af Amer) 93.8 ml/min BUN/Creatinine Ratio 21.3 H (10-20) Glucose 111 H (70-99(Fasting)) mg/dl Calcium 7.9 L (8.5-10.1) mg/dl
--- NOTE | 2021-11-12 12:02 | Hospitalist Progress Note ---
Date of Service November 12, 2021 Assessment & Plan (1) Bilateral primary osteoarthritis of knee: Plan: Patient is a 66 yr female was consulted for post op medical management after having bilateral knee replacement. Bilateral primary osteoarthritis of knee S/P bilateral total knee arthroplasty on 11/10/[address] Watkins Postoperative acute blood loss anemia Pain control, DVT prophylaxis, activity as per primary team Continue incentive spirometer Bowel regimen to prevent constipation Monitor CBC No indication for transfusion currently Hb 8.2 today Continue PT/OT Post operative Hypotension BP better with IV fluids Currently not on any antihypertensives Monitor BP Depression: Continue Effexor XR. RLS On ropinirole Glaucoma: Dry Eyes Continue home eyedrops DVT Px: As per Primary Team Admission and Anticipated Discharge Date Admission Date: November 10, 2021 Subjective Patient is seen and examined at bedside States feeling well today Had walked in hallways earlier today Pain is well controlled BP better today Denies any chest pain, shortness of breath, dizziness, nausea, abdominal pain Review of Systems Review of Systems: All systems reviewed & are unremarkable except as noted in Subjective Physical Exam Physical Exam: Physical Exam: Vitals signs as noted above General Appearance:Moderately built and nourished, no apparent distress Head: normocephalic, Atraumatic Eyes: normal inspection, EOMI Neck: supple, Trachea midline Respiratory/Chest: Normal breath sounds, CTA, No accessory muscle use Cardiovascular: S1, S2, No murmur Abdomen/GI:Soft, Non tender, Bowel sounds present Extremities/Musculoskeletal:normal inspection, no edema, B/L Knee in dressing Neurologic/Psych:AAOX3, grossly no focal neurological deficits Skin: normal color, warm Results & Data Results & Data ([facility]) Vital Signs (Past 12 Hours) Vital Signs Temp Pulse Pulse Resp BP BP Pulse Ox 11/12/21 11:58 36.7 C 93 H 102 H 18 101/65 120/76 96 11/12/21 07:38 36.7 C 102 H 18 120/76 96 Laboratory Results Short CBC 11/12/21 Range/Units 06:31 WBC 6.57 (4.8-10.8) K/uL Hgb 8.2 L (12.0-16.0) g/dL Hct 23.7 L (37-47) % Plt Count 224 (130-400) K/uL BMP 11/12/21 06:31 Sodium 132 L Potassium 3.8 Chloride 103 Carbon Dioxide 26 BUN 13 Creatinine 0.61 Glucose 111 H Calcium 7.9 L
== END 2021-11-12 13:14 | disposition home health service (06) ==
LOC: 3W 06:41 → ASU 06:41